=== PATIENT | male | born 1950 | race Caucasian/White ===

== ENCOUNTER 2017-10-11 09:32 | Emergency (ER) | payer MEDICARE, OTHER ==
[~2017-10-11] VITALS: Ht 180.3 cm; Wt 120.2 kg
[~2017-10-11 09:32] MED LIST: ATOR20TA66; CEFT1FRO2 IV; CLIN300C11 PO; LOSA100T28; NAPR220T76; OXYC-464 PO; SILD100T PO
[2017-10-11] MEDS ORDERED: METF10002 (09:55)
--- NOTE | 2017-10-11 10:43 | ED Upper Extremity ---
General Chief Complaint: Upper Extremity Stated Complaint: THUMB HURT FEELS INFECTED Nursing Triage Note: ARRIVED VIA AMB TO ROOM 05. COMPLAINS OF POSSIBLE LEFT THUMB INFECTION AFTER HAVINE A SLIVER OF WOOD IN IT. Nursing Sepsis Screen: No Definite Risk Source: patient Exam Limitations: no limitations History of Present Illness Date Seen by Provider: October 11, 2017 Time Seen by Provider: 10:21 Initial Comments Here with injury of the left thumb with concern of infection. This involves the ulnar side of the thumb along the edge of the nailbed. Onset after getting a splinter in that area a few days ago. He remove what. He has been using over -the-counter wound and dressing but it has not worked to keep infection from happening apparently. He is diabetic. No red streaks or fever reported. Onset: other (3 days ago) Severity: mild Pain/Injury Location: left thumb Method of Injury: other (splinter) Modifying Factors: Improves With Rest Allergies and Home Medications Allergies Coded Allergies: NKANo Known Allergies (Unverified Allergy, Mild, 06/19/09) Home Medications Ceftriaxone Na/Dextrose,Iso 1 Gm/50 Ml Froz.piggy, 1 GM IV DAILY Prescribed by: FLORI OBRIEN on 01/20/16 0738 Oxycodone HCl/Acetaminophen 1 Each Tablet, 1 TAB PO Q6H PRN for PAIN, (Reported) Sildenafil Citrate 100 Mg Tablet, 100 MG PO DAILY PRN for MIGRAINE, (Reported) Patient Home Medication List Home Medication List Reviewed: Yes Constitutional: no symptoms reported; No chills, No fever Respiratory: no symptoms reported; No short of breath, No wheezing Cardiovascular: no symptoms reported; No chest pain, No edema Musculoskeletal: No muscle pain, No muscle stiffness Skin: see HPI, change in color, lesions All Other Systems Reviewed Negative Unless Noted: No Past Slxtjsf-Cxgbru-Yvfvhn Hx Past Med/Social Hx: Reviewed Nursing Past Med/Soc Hx Patient Social History Alcohol Use: Occasionally Uses Alcohol Beverage of Choice: Whiskey, [place] Recreational Drug Use: No Smoking Status: Never a Smoker Recent Foreign Travel: No Contact w/Someone Who Travel: No Recent Infectious Disease Expo: No Recent Hopitalizations: No Immunizations Up To Date Tetanus Booster (TDap): Less than 5yrs PED Vaccines UTD: Yes Date of Pneumonia Vaccine: Mar 07, 2011 Seasonal Allergies Seasonal Allergies: No Past Medical History Surgeries: Yes (BACK SURGERY, NECK SURGERY,PIN IN LEFT HAND. BILATERAL KNEE SCOPES) Orthopedic Respiratory: No Currently Using CPAP: No Currently Using BIPAP: No Cardiac: Yes Hypertension Neurological: No Reproductive Disorders: No Sexually Transmitted Disease: No HIV/AIDS: No Gastrointestinal: No Musculoskeletal: No Back Injury, Chronic Back Pain Endocrine: Yes Diabetes, Non-Insulin dep Loss of Vision: Denies Hearing Impairment: Denies Cancer: No Psychosocial: No Integumentary: No Recent Skin Changes Blood Disorders: No Adverse Reaction/Blood Tranf: No Family Medical History Reviewed Nursing Family Hx Patient reports no known family medical history. No Pertinent Family Hx Physical Exam Vital Signs Vital Signs - First Documented 10/11/17 09:50 Temp 99.4 Pulse 119 Resp 18 B/P (MAP) 160/102 (121) Pulse Ox 96 O2 Delivery Room Air Capillary Refill : Less Than 3 Seconds General Appearance: WD/WN, no apparent distress Cardiovascular: regular rate, rhythm, no murmur Respiratory: lungs clear, normal breath sounds, no respiratory distress Hand: Left, soft tissue tenderness, swelling (paronychial type infection to the ulnar side of the left thumb with small amount of fluctuance noted in that area.) Neurologic/Psychiatric: alert, oriented x 3 Skin: warm/dry, other (. Trachea findings with redness and fluctuance noted to the ulnar side of the left thumb) Progress/Results/Core Measures Results/Orders My Orders Orders - BRANDY ZAMORA MD Wound Culture (10/11/17 10:35) Lidocaine 1% Inj 50 Ml (Xylocaine 1% Inj (10/11/17 10:54) Vital Signs/I&O 10/11/17 09:50 Temp 99.4 Pulse 119 Resp 18 B/P (MAP) 160/102 (121) Pulse Ox 96 O2 Delivery Room Air Blood Pressure Mean: 121 Progress Progress Note : Progress Note Seen and evaluated. We will do I&D of the paronychia. 1100: Patient's wound spontaneously opened so I&D not done. I did get wound culture. Wound cleaned and covered with antibiotic ointment and Band-Aid. Review of previous records show patient has history of staph aureus on the other thumb so we will initiate treatment with Bactrim DS. Discharged home with return precautions. Patient verbalize understanding instructions and agreement with plan. Departure Impression Primary Impression: Paronychia of finger of left hand Disposition: HOME, SELF-CARE Condition: Improved Departure-Patient Inst. Decision time for Depature: 11:13 Referrals: KEVIN OBRIEN MD (PCP/Family) Primary Care Physician Patient Instructions: Reina (SID) Add. Discharge Instructions: All discharge instructions reviewed with patient and/or family. Voiced understanding. Take medications as directed. Use antibiotic ointment over wound twice daily for the next several days and then as needed. Return for worse pain, fever, vomiting, red streaks up the hand or other concerns as needed. Scripts Mupirocin (Mupirocin) 22 Gm Oint...g. 0.5 GM TP BID, #1 TUBE 1 Refill Prov: BRANDY ZAMORA MD 10/11/17 Sulfamethoxazole/Trimethoprim (Sulfamethoxazole-Tmp Ds Tablet) 1 Each Tablet 1 EACH PO BID, #14 TAB 0 Refills Prov: BRANDY ZAMORA MD 10/11/17 BRANDY ZAMORA MD October 11, 2017 10:43
[2017-10-11] MEDS ORDERED: LIDOCAINE 1% INJ 50 ML (XYLOCAINE) VIAL ONE (10:54)
[2017-10-11] MEDS ORDERED: SULF-222 PO (11:15)
[2017-10-11] MEDS ORDERED: MUPI22OI2 TP (11:15)
[2017-10-11 11:17] VITALS: BP 134/102
== END 2017-10-11 11:17 | disposition home or self-care (01) ==
LOC: EDUNIT# 09:32 → ER 09:36
DX: L03.012 Cellulitis of left finger (principal); E11.9 Type 2 diabetes mellitus without complications; I10 Essential (primary) hypertension; Z98.890 Other specified postprocedural states
CPT/HCPCS: 87070; 87077; 87186; 87205

== ENCOUNTER → 2020-12-31 | Outpatient (CLI) | payer MEDICARE, OTHER ==
[~2020-12-31] MED LIST changes: -CLIN300C11 PO; +CLIN300C12 PO; -LOSA100T28; +LOSA100T57; +METF-399; +MUPI22OI2 TP; -OXYC-464 PO; +OXYC1TAB15 PO; +SULF-222 PO
--- NOTE | 2020-12-31 13:11 | Diagnostic Imaging Report ---
INDICATION: Back pain 3 views of the lumbosacral spine shows changes of prior laminectomy and fusion with bilateral pedicle screws and stabilization rods seen from L2 through S1. There is overall normal height and alignment of the vertebral bodies. There is at least some disc space narrowing at all levels but is most pronounced at L4-L5. There is spondylosis at all levels. There is no abnormal erosions around the fixation hardware. There is no fracture. IMPRESSION: There is diffuse degenerative changes present. There are changes of laminectomy and fusion with no acute abnormality evident. Dictated by: Dictated on workstation # [id number]
--- NOTE | 2020-12-31 13:12 | Diagnostic Imaging Report ---
INDICATION: Back pain 3 views of the thoracic spine shows mild levoscoliosis in the upper thoracic spine. There is loss of the normal lordotic curve. There is disc space narrowing and spondylosis at all levels but no significant spinal canal encroachment is evident on these views. No fracture is seen. IMPRESSION: There are diffuse degenerative changes present with no acute abnormality seen. Dictated by: Dictated on workstation # [id number]
== END ==
LOC: RAD 10:28
DX: M47.25 Other spondylosis with radiculopathy, thoracolumbar region (principal); Z98.1 Arthrodesis status; Z98.890 Other specified postprocedural states
CPT/HCPCS: 72072; 72100

== ENCOUNTER → 2021-05-06 | Outpatient (CLI) | payer MEDICARE, OTHER ==
[~2021-05-06] MED LIST changes: +CLIN-144 PO; -CLIN300C12 PO
== END ==
LOC: LABNPT 06:30
PROVIDERS: ATTEND Orthopaedic Surgery
DX: Z01.812 Encounter for preprocedural laboratory examination (principal); Z53.9 Procedure and treatment not carried out, unspecified reason

== ENCOUNTER → 2021-05-31 | Outpatient (CLI) | LOC: MERGE 05:03 → LABNPT 05:03 | PROVIDERS: ATTEND Orthopaedic Surgery | DX: Z01.812 Encounter for preprocedural laboratory examination (principal); Z20.822 Contact with and (suspected) exposure to COVID-19 | CPT/HCPCS: 87635 ==

== ENCOUNTER → 2022-05-10 | Outpatient (CLI) | payer MEDICARE, OTHER ==
--- NOTE | 2022-05-10 15:00 | Diagnostic Imaging Report ---
PROCEDURE: US right lower extremity venous. TECHNIQUE: Multiple Real-time grayscale images were obtained over the right lower extremity in various projections. Additional spectral analysis and color Doppler duplex images were also obtained. INDICATION: Right calf pain. FINDINGS: There is no evidence of right lower extremity DVT. The right lower extremity deep venous system shows normal compressibility with normal response to augmentation and Valsalva. No fluid collection or mass is detected. IMPRESSION: No evidence of right lower extremity DVT. Dictated by: Dictated on workstation # [id number]
== END ==
LOC: RAD 12:01
PROVIDERS: ATTEND Family Medicine
DX: M79.661 Pain in right lower leg (principal); W19.XXXA Unspecified fall, initial encounter